=== PATIENT | female | born 1950 | race Caucasian/White ===

== ENCOUNTER → 2017-10-20 | Outpatient (CLI) | payer MEDICARE ==
[2017-10-20 10:08] LABS: ALT 24 U/L (9-52); AST 21 U/L (14-36); Alkaline Phosphatase 60 U/L (38-126); Anion Gap 7 mmol/L; Blood Urea Nitrogen 19 mg/dL (7-17); Carbon Dioxide 27 mmol/L (22-30); Chloride 104 mmol/L (98-107); Cholesterol 219 mg/dL (<200); Glucose 96 mg/dL (74-99); HDL Cholesterol 65 mg/dL (40-60); Non-African American GFR(MDRD) 51 (>60 ml/min/1.73 sqM); Potassium 4.1 mmol/L (3.5-5.1); Sodium 138 mmol/L (137-145); Total Bilirubin 0.4 mg/dL (0.2-1.3); Total Protein 6.5 g/dL (6.3-8.2)
== END | disposition home or self-care (01) ==
LOC: LABWHC1 09:19
PROVIDERS: ATTEND Internal Medicine Interventional Cardiology
DX: E78.2 Mixed hyperlipidemia (principal)
CPT/HCPCS: 36415; 80053; 80061

== ENCOUNTER → 2017-10-28 | Day surgery (SDC) | payer MEDICARE ==
[2017-10-24 11:02] VITALS: BMI 37.2
[~2017-10-28] MED LIST: ALPRAZolam 0.25 MG TAB PO PRN; ALPRAZolam 0.5 MG TAB PO PRN; ASPIRIN 325 MG TAB PO SCH; ASPIRIN 325 MG TAB PO STA; ATORVASTATIN 40 MG TAB PO SCH; ATORVASTATIN 80 MG TAB PO STA; HEPARIN SODIUM 1,000 UN/ML (10ML VL) IV ONE; HEPARIN SODIUM 1,000 UN/ML (10ML VL) ONE; IOHEXOL 350 MG/ML 125ML BOTTLE INJ ONE; ISOSORBIDE MONONITRATE ER 30 MG TAB.ER.24H PO SCH; LIDOCAINE 2% INJ 20 MG/ML (20 ML MDV) ONE; LIDOCAINE 2% INJ 20 MG/ML SQ ONE; LISINOPRIL-HCTZ 20-12.5 MG 1 EACH TAB PO SCH; LORazepam 1 MG TAB PO PRN; MULTIVITAMINS, THERA 1 EACH TAB PO SCH; NITROGLYCERIN SL TABS 0.4 MG TAB SUBLINGUAL PRN; NON-FORMULARY DRUG (Cholecalciferol (Vitamin D3) [Vitamin D3] 2,000 UNIT) PO SCH; NON-FORMULARY DRUG (Cyanocobalamin (Vitamin B-12) [Vitamin B-12] 1,000 MCG) PO SCH; NON-FORMULARY DRUG (Fish Oil/Dha/Epa [Fish Oil 1,200 Mg Fish Oil] 1 EACH) PO SCH; NON-FORMULARY DRUG (Levothyroxine Sodium [Synthroid] 175 MCG) PO SCH; RX INFO: IV CONTRAST WAS GIVEN 1 EACH MISC MISCELLANE PRN; SODIUM CHLORIDE 0.9% 1,000 ML IV SCH; SODIUM CHLORIDE 0.9% 1,000 ML in EMPTY BAG 1 BAG IV ONE; VERAPAMIL 2.5 MG/ML 2 ML AMP ONE; VERAPAMIL SYRINGE (5 MG/10 ML) INTRAARTER ONE; fentaNYL (PF) 50 MCG/ML 2 ML AMP IV ONE; fentaNYL (PF) 50 MCG/ML 2 ML AMP ONE
[2017-10-28 06:36] VITALS: RESP 18; TEMP 97.9
[2017-10-28 06:42] LABS: Basophils # (A) 0.1 k/uL (0-0.2); Basophils % (A) 1 %; CH 23.5; CHCM 31.2; Eosinophils # (A) 0.3 k/uL (0-0.7); Eosinophils % (A) 5 %; HCT 33.1 % (34.0-46.0); HDW 2.85; Hypochromasia Moderate; Luc # (Auto) 0.16; Luc % (Auto) 2; Lymphocytes # (A) 1.9 k/uL (1.0-4.8); Lymphocytes % (A) 28 %; MCH 22.8 pg (25.0-35.0); MCHC 30.3 g/dL (31.0-37.0); MCV 75.4 fL (80.0-100.0); Mean Platelet Volume 7.9; Microcytosis Slight; Monocytes # (A) 0.5 k/uL (0-1.0); Monocytes % (A) 8 %; Neutrophils # (A) 3.8 k/uL (1.3-7.7); Neutrophils % (A) 56 %; RBC 4.39 m/uL (3.80-5.40); WBC 6.9 k/uL (3.8-10.6); WBC (Perox) 6.46
[2017-10-28 06:47] LABS: Calcium 9.5 mg/dL (8.4-10.2); Potassium 4.1 mmol/L (3.5-5.1)
--- NOTE | 2017-10-28 09:05 | CC ---
CARDIAC CATHETERIZATION REPORT Ms. Pathak is a 67-year-old female, known history of hypertension, hyperlipidemia, who has been complaining of chest discomfort associated with mild dyspnea. She underwent a myocardial perfusion imaging that revealed partially reversible anterolateral wall defect. In view of that and because of the persistent symptoms, recommendation made regarding cardiac catheterization the procedures risks and complication were discussed with the patient, who is in full understanding and agreement. 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 Using Xylocaine anesthesia and Seldinger technique, a 6-[place] sheath was introduced in the right radial artery. Selective right coronary angiography performed using 5-[place] Citizen 3- 1/2 bend right and left Rosanne catheter multiple views of the coronary artery including hemiaxial views were obtained. Following that 5-[place] Citizen tight pigtail catheter was introduced into the left ventricle and a 30 degree RODRIGUEZ view of the left ventricle was obtained. Following that, catheter and sheath were removed. Hemostasis was obtained with deployment of a TR band. There was no immediate complication. Patient returned to room in stable condition. Of note, the patient received 5000 units of intravenous heparin as well as intra-arterial verapamil. FINDINGS: 1. Left main this is a large-sized vessel bifurcating left circumflex left anterior descending artery. Left main coronary artery is without any obstructive coronary artery disease. 2. Left anterior descending artery: This is a large-sized vessel reaching to the apex giving rise to a large diagonal branch. The left anterior descending artery as well as branches have no evidence of obstructive disease. 3. Left circumflex: This is a codominant vessel giving rise to a very large proximal obtuse marginal branch distally bifurcating PDA and posterolateral segment and branches. The left circumflex as well as branches have no evidence of obstructive coronary disease. 4. Right coronary artery: This is a codominant vessel, moderate in caliber. That has no evidence of high-grade stenosis. 5. Left ventriculogram: Left ventriculogram is 30-degree RODRIGUEZ view and revealed normal left ventricular size and systolic function. 6. HEMODYNAMICS: There was no gradient across the aortic valve. The left ventricular end-diastolic pressure was 10 mmHg. CONCLUSION: 1. Normal coronary arteries. 2. Normal left ventricular size and systolic function. RECOMMENDATION: In view of finding anatomy, I recommend continue medical therapy with aggressive medications been initiated. Those findings and recommendation were discussed with the patient and agreement. DURATION OF THE PROCEDURE: 19 minutes. MMODL / IJN: [id number] /
--- NOTE | 2017-10-28 09:11 | LTR ---
October 28, [address] Palacios: I had the pleasure of performing cardiac catheterization on Ms. Pathak at [facility] on October 28 and full copy of the procedure note will be forwarded to you. In brief, she was found to have no evidence of obstructive coronary artery disease. Based on those findings, I recommend continue medical therapy with aggressive risk modification being initiated. Thank you again for allowing me to participate in this patient's care. Please feel free to call for any questions. Sincerely, AFIA / DAVIDN: [id number] /
[2017-10-28 13:15] VITALS: BP 110/62; PULSE 57
== END | disposition home or self-care (01) ==
LOC: CATHCVL 06:10
PROVIDERS: ATTEND Internal Medicine Interventional Cardiology
DX: R07.89 Other chest pain (principal); R94.8 Abnormal results of function studies of other organs and systems; I10 Essential (primary) hypertension; E78.2 Mixed hyperlipidemia; Z82.49 Family history of ischemic heart disease and other diseases of the circulatory system; Z79.82 Long term (current) use of aspirin; Z79.899 Other long term (current) drug therapy
CPT/HCPCS: 93458; 80048; 85025; C1894; C1769; J2001; J3010; J1644; Q9967

== ENCOUNTER → 2017-12-24 | Outpatient (CLI) | payer MEDICARE ==
[2017-12-24 11:02] LABS: Anisocytosis Slight; Basophils % (A) 1 %; Eosinophils # (A) 0.1 k/uL (0-0.7); Eosinophils % (A) 2 %; HCT 34.6 % (34.0-46.0); HGB 10.2 gm/dL (11.4-16.0); Hypochromasia Moderate; Lymphocytes # (A) 0.7 k/uL (1.0-4.8); Lymphocytes % (A) 14 %; MCH 22.8 pg (25.0-35.0); MCHC 29.6 g/dL (31.0-37.0); MCV 77.2 fL (80.0-100.0); Mean Platelet Volume 8.8; Microcytosis Slight; Monocytes # (A) 0.4 k/uL (0-1.0); Monocytes % (A) 8 %; Neutrophils # (A) 3.6 k/uL (1.3-7.7); Neutrophils % (A) 74 %; Platelet Count 222 k/uL (150-450); RBC 4.49 m/uL (3.80-5.40); RDW 16.6 % (11.5-15.5); WBC 4.8 k/uL (3.8-10.6)
[2017-12-24 11:14] LABS: T4, Free (Free Thyroxine) 2.17 ng/dL (0.78-2.19)
[2017-12-24 11:24] LABS: Calcium 9.2 mg/dL (8.4-10.2); Potassium 4.2 mmol/L (3.5-5.1); Total Bilirubin 0.6 mg/dL (0.2-1.3); Total Protein 6.4 g/dL (6.3-8.2)
[2017-12-24 17:52] LABS: Thyroid Peroxidase Antibodies <28.0 U/mL (0.0-60.0)
== END | disposition home or self-care (01) ==
LOC: LABWHC1 09:40
PROVIDERS: ATTEND Internal Medicine Interventional Cardiology
DX: E78.2 Mixed hyperlipidemia (principal); D64.9 Anemia, unspecified
CPT/HCPCS: 36415; 80053; 80061; 84439; 84443; 84480; 85025; 86376; 86800

== ENCOUNTER 2018-02-06 06:55 | Day surgery (SDC) | payer MEDICARE ==
[2018-02-04 15:30] VITALS: BMI 36.8
[~2018-02-06 06:55] MED LIST changes: -ALPRAZolam 0.25 MG TAB PO PRN; -ALPRAZolam 0.5 MG TAB PO PRN; -ASPIRIN 325 MG TAB PO SCH; -ASPIRIN 325 MG TAB PO STA; -ATORVASTATIN 40 MG TAB PO SCH; -ATORVASTATIN 80 MG TAB PO STA; -HEPARIN SODIUM 1,000 UN/ML (10ML VL) IV ONE; -HEPARIN SODIUM 1,000 UN/ML (10ML VL) ONE; -IOHEXOL 350 MG/ML 125ML BOTTLE INJ ONE; -ISOSORBIDE MONONITRATE ER 30 MG TAB.ER.24H PO SCH; +LACTATED RINGERS 1,000 ML IV SCH; +LIDOCAINE 1% 20 ML VIAL (10MG/ML) FOR IV START INTRADERMA PRN; -LIDOCAINE 2% INJ 20 MG/ML (20 ML MDV) ONE; -LIDOCAINE 2% INJ 20 MG/ML SQ ONE; -LISINOPRIL-HCTZ 20-12.5 MG 1 EACH TAB PO SCH; -LORazepam 1 MG TAB PO PRN; -MULTIVITAMINS, THERA 1 EACH TAB PO SCH; -NITROGLYCERIN SL TABS 0.4 MG TAB SUBLINGUAL PRN; -NON-FORMULARY DRUG (Cholecalciferol (Vitamin D3) [Vitamin D3] 2,000 UNIT) PO SCH; -NON-FORMULARY DRUG (Cyanocobalamin (Vitamin B-12) [Vitamin B-12] 1,000 MCG) PO SCH; -NON-FORMULARY DRUG (Fish Oil/Dha/Epa [Fish Oil 1,200 Mg Fish Oil] 1 EACH) PO SCH; -NON-FORMULARY DRUG (Levothyroxine Sodium [Synthroid] 175 MCG) PO SCH; -RX INFO: IV CONTRAST WAS GIVEN 1 EACH MISC MISCELLANE PRN; -SODIUM CHLORIDE 0.9% 1,000 ML IV SCH; -SODIUM CHLORIDE 0.9% 1,000 ML in EMPTY BAG 1 BAG IV ONE; -VERAPAMIL 2.5 MG/ML 2 ML AMP ONE; -VERAPAMIL SYRINGE (5 MG/10 ML) INTRAARTER ONE; -fentaNYL (PF) 50 MCG/ML 2 ML AMP IV ONE; -fentaNYL (PF) 50 MCG/ML 2 ML AMP ONE
[2018-02-06 07:46] VITALS: RESP 16; TEMP 98.2
[2018-02-06] MEDS ORDERED: PROPOFOL 10 MG/ML 20 ML VIAL IV ONE (09:11)
--- NOTE | 2018-02-06 09:35 | P.PCN ---
Date of Procedure: 02/06/18 Procedure(s) Performed: BRIEF HISTORY: Patient is a 68-year-old pleasant white female, scheduled for an elective colonoscopy as a part of screening for colon cancer. She was noted to have a positive cologard test recently. PROCEDURE PERFORMED: Colonoscopy. PREOPERATIVE DIAGNOSIS: Screening for colon cancer IV sedation per Anesthesia. PROCEDURE: After informed consent was obtained, the patient, was brought into the endoscopy unit. IV sedation was administered by Anesthesia under continuous monitoring. Digital rectal examination was normal. Initially the Olympus CF- 160 flexible video colonoscope was then inserted in the rectum, gradually advanced into the cecum without any difficulty. Careful examination was performed as the scope was gradually being withdrawn. Ileocecal valve and the appendiceal orifice were visualized and appeared normal. Prep was excellent. Mucosa of the cecum, ascending colon, transverse colon, descending colon, sigmoid colon, and rectum appeared normal. Retroflexion was performed in the rectum and no lesions were seen. scattered sigmoid diverticulosis seen. The patient tolerated the procedure well. IMPRESSION: Normal-appearing colon from rectum to cecum with no evidence of colorectal neoplasia . Scattered sigmoid diverticulosis RECOMMENDATIONS: Findings of this examination were discussed with the patient as well as a family. She was advised to have a repeat screening colonoscopy in 10 years
[2018-02-06 09:54] VITALS: BP 176/79; PULSE 54
== END 2018-02-06 10:32 | disposition home or self-care (01) ==
LOC: ORWHC2ENDO 06:55
PROVIDERS: ATTEND Internal Medicine Gastroenterology
DX: Z12.11 Encounter for screening for malignant neoplasm of colon (principal); K57.30 Diverticulosis of large intestine without perforation or abscess without bleeding; I10 Essential (primary) hypertension; E78.5 Hyperlipidemia, unspecified; E07.9 Disorder of thyroid, unspecified; K21.9 Gastro-esophageal reflux disease without esophagitis; R00.1 Bradycardia, unspecified; Z79.82 Long term (current) use of aspirin; Z79.899 Other long term (current) drug therapy; Z88.6 Allergy status to analgesic agent; Z91.040 Latex allergy status; Z91.018 Allergy to other foods
CPT/HCPCS: J2704; G0121

== ENCOUNTER 2018-03-02 16:33 | Emergency (ER) | payer MEDICARE ==
[2018-03-02 17:02] VITALS: BP 130/74; PULSE 65; RESP 18; TEMP 97.3
--- NOTE | 2018-03-02 17:23 | ED ---
General Adult HPI - General Chief complaint: Extremity Injury, Lower Stated complaint: Foot/ankle injury Time Seen by Provider: 03/02/18 17:07 Source: patient, RN notes reviewed Mode of arrival: wheelchair Limitations: no limitations - History of Present Illness Initial comments: Patient 68-year-old female presenting to the emergency room today with chief complaint of injury to left ankle. She does admit that she was coming down off of her porch when she stepped out onto the grass when the left ankle. She states she believes she stepped in a small hole. Patient does admit to pain locally to the lateral aspect of the left ankle and foot. Patient admits that she did fall down onto her elbows but states that they are fine. Denies any head injury or loss conscious. Denies any other complaints. Patient denies any blood thinners. Patient denies any recent fever, chills, shortness of breath , chest pain, back pain, abdominal pain, nausea or vomiting, numbness or tingling, headaches or visual changes, or any other complaints. - Related Data Home Medications Medication Instructions Recorded Confirmed Levothyroxine Sodium [Synthroid] 137 mcg PO DAILY 09/25/15 02/06/18 Lisinopril-Hctz 20-12.5 mg 0.5 tab PO DAILY 09/25/15 02/06/18 [Zestoretic 20-12.5] Aspirin 325 mg PO Q2D 10/24/17 02/06/18 Atorvastatin [Lipitor] 40 mg PO DAILY 10/24/17 02/06/18 Cholecalciferol (Vitamin D3) 2,000 unit PO DAILY 10/24/17 02/06/18 [Vitamin D3] Cyanocobalamin (Vitamin B-12) 1,000 mcg PO DAILY 10/24/17 02/06/18 [Vitamin B-12] Fish Oil/Dha/Epa [Fish Oil 1,200 1 each PO DAILY 10/24/17 02/06/18 mg Fish Oil] LORazepam [Ativan] 1 mg PO BID PRN 10/24/17 02/06/18 Multivitamins, Thera [Multivitamin 1 tab PO DAILY 10/24/17 02/06/18 (formulary)] Vitamin E 100 unit PO DAILY 02/04/18 02/06/18 Allergies Allergy/AdvReac Type Severity Reaction Status Date / Time aspartame Allergy Anaphylaxis Verified 03/02/18 17:02 banana Allergy Anaphylaxis Verified 03/02/18 17:02 water chestnut Allergy Swelling Verified 03/02/18 17:03 adhesive tape AdvReac skin Verified 03/02/18 17:02 blisters latex AdvReac Rash/Hives Verified 03/02/18 17:02 Review of Systems ROS Statement: Those systems with pertinent positive or pertinent negative responses have been documented in the HPI. ROS Other: All systems not noted in ROS Statement are negative. Past Medical History Past Medical History: GERD/Reflux, Hyperlipidemia, Hypertension, Thyroid Disorder Additional Past Medical History / Comment(s): bradycardia History of Any Multi-Drug Resistant Organisms: None Reported Past Surgical History: Appendectomy, Bariatric Surgery, Hysterectomy Additional Past Surgical History / Comment(s): rouxen y gastric bypass 2000 Past Anesthesia/Blood Transfusion Reactions: No Reported Reaction Past Psychological History: Anxiety, Depression Smoking Status: Never smoker Past Alcohol Use History: None Reported Past Drug Use History: None Reported - Past Family History Mother Family Medical History: No Reported History General Exam - General Exam Comments Initial Comments: General: The patient is awake and alert, in no distress, and does not appear acutely ill. Cardiovascular: There is a regular rate and rhythm. No murmur, rub or gallop is appreciated. Respiratory: Lungs are clear to auscultation, respirations are non-labored, breath sounds are equal. No wheezes, stridor, rales, or rhonchi. Musculoskeletal: Patient does have some moderate swelling over the lateral aspect of left ankle and down to the fifth metatarsals. Patient shows limited range of motion with plantar and dorsiflexion of the left ankle due to pain. Minimal tenderness over the medial malleolus. Mild tenderness over the proximal fourth and fifth metatarsals. Mildly tender over the lateral malleolus with increased tenderness in the ATFL. No specific tenderness over the fibular head or to the left knee. Neurological: A&O x 3. CN II-XII intact, There are no obvious motor or sensory deficits. Coordination appears grossly intact. Speech is normal. Skin: Skin is warm and dry and no rashes or lesions are noted. Psychiatric: Normal mood and affect. Limitations: no limitations Course Vital Signs 03/02/18 16:58 Temperature 97.3 F L Pulse Rate 65 Respiratory 18 Rate Blood Pressure 130/74 O2 Sat by Pulse 99 Oximetry Medical Decision Making - Medical Decision Making X-rays reviewed and show a fracture of the proximal fifth metatarsal. Patient has been splinted in a short leg posterior OCL. Neurovascular rechecked and intact. Patient does have an appointment with orthopedic doctor tomorrow morning at 8 AM. Patient advised nonweightbearing she does have crutches at home. Advised to continue to ice elevate tonight. Disposition Clinical Impression: Foot fracture, Ankle sprain Disposition: HOME SELF-CARE Condition: Good Instructions: Foot Fracture in Adults (ED) Additional Instructions: Please leave splint in place until follow-up with orthopedics tomorrow. Please continue to ice elevate and stay nonweightbearing. Please return to emergency room if the symptoms increase or worsen or for any other concerns. Is patient prescribed a controlled substance at d/c from ED?: No Referrals: Nathaniel Palacios DO [Primary Care Provider] - 1-2 days Time of Disposition: 17:55
--- NOTE | 2018-03-02 17:32 | XR ---
EXAMINATION TYPE: XR tibia fibula LT, XR foot complete LT, XR ankle complete LT DATE OF EXAM: 03/02/2018 CLINICAL HISTORY: Fall injury 3 days ago with persistent pain and swelling TECHNIQUE: Two views of the left leg are obtained. 3 views of left ankle and foot are acquired. COMPARISON: None. FINDINGS: Osseous structures are noted demineralized. There is no acute fracture or dislocation seen in the left tibia or fibula. There is mild to moderate tricompartment joint space loss and spurring at level of left knee. Mild to moderate diffuse subcutaneous edema is present. There is moderate focal soft tissue swelling over the lateral malleolus. No acute fracture or disloca tion is seen. Ankle mortise symmetry is preserved. Images of left foot show hallux valgus positioning first metatarsophalangeal joint. There is acute mi nimally displaced transverse fracture through base of fifth metatarsal. Mild subcutaneous edema is pr esent. IMPRESSION: There is acute minimally displaced transverse fracture base of fifth metatarsal. (Henry type fracture). (Initial encounter close type post traumatic fracture)
== END 2018-03-02 18:15 | disposition home or self-care (01) ==
LOC: EC 16:33
DX: S92.352A Displaced fracture of fifth metatarsal bone, left foot, initial encounter for closed fracture (principal); S93.402A Sprain of unspecified ligament of left ankle, initial encounter; E78.5 Hyperlipidemia, unspecified; I10 Essential (primary) hypertension; E07.9 Disorder of thyroid, unspecified; Z79.899 Other long term (current) drug therapy; Z79.82 Long term (current) use of aspirin; Z91.018 Allergy to other foods; Z91.040 Latex allergy status; Z91.048 Other nonmedicinal substance allergy status; W18.30XA Fall on same level, unspecified, initial encounter
CPT/HCPCS: 29515; 99283

== ENCOUNTER 2019-08-07 17:26 | Emergency (ER) | payer MEDICARE ==
[2019-08-07 18:06] LABS: Basophils # (A) 0.1 k/uL (0-0.2); Basophils % (A) 1 %; Eosinophils # (A) 0.2 k/uL (0-0.7); Eosinophils % (A) 2 %; HGB 10.7 gm/dL (11.4-16.0); Lymphocytes # (A) 1.7 k/uL (1.0-4.8); Lymphocytes % (A) 20 %; MCH 27.9 pg (25.0-35.0); MCHC 31.5 g/dL (31.0-37.0); MCV 88.7 fL (80.0-100.0); Mean Platelet Volume 8.1; Monocytes # (A) 0.5 k/uL (0-1.0); Monocytes % (A) 6 %; Neutrophils # (A) 5.9 k/uL (1.3-7.7); Neutrophils % (A) 68 %; Platelet Count 382 k/uL (150-450); RBC 3.83 m/uL (3.80-5.40); RDW 13.7 % (11.5-15.5); WBC 8.7 k/uL (3.8-10.6)
[2019-08-07 18:15] LABS: INR 0.9 (<1.2); Partial Thromboplastin Time 23.9 sec (22.0-30.0); Prothrombin Time 10.2 sec (9.0-12.0)
[2019-08-07 18:21] LABS: Albumin 3.3 g/dL (3.5-5.0); Calcium 8.7 mg/dL (8.4-10.2); Potassium 4.4 mmol/L (3.5-5.1); Total Bilirubin 0.6 mg/dL (0.2-1.3)
--- NOTE | 2019-08-07 18:23 | XR ---
EXAMINATION TYPE: XR chest 2V DATE OF EXAM: 08/07/2019 COMPARISON: NONE HISTORY: Chest pain TECHNIQUE: Frontal and lateral views of the chest are obtained. FINDINGS: Heart and mediastinum are normal. Lungs are clear of infiltrate. There is no pleural effus ion. Bony thorax is intact. IMPRESSION: Normal chest.
--- NOTE | 2019-08-07 19:03 | ED ---
Chest Pain HPI - General Chief Complaint: Chest Pain Stated Complaint: chest pain Time Seen by Provider: 08/07/19 17:45 Source: EMS Mode of arrival: EMS - History of Present Illness Initial Comments: Patient is a 69-year-old female with past medical history of Rui-en-Y bypass who presents to the emergency room with reported left-sided chest pain. She reports that it's been going on for the past 2 days. It started after she was helping to lift assist her . It waxes and wanes in nature. Does appear to be exacerbated by food and water intake. She describes it as a left-sided substernal pain with radiation straight through to her back. It feels as if someone is stabbing her in her left scapula. She denies any associated nausea, vomiting or diaphoresis. Denies cough or hemoptysis. No history of coronary disease. States that she has had a cath in 1996, which demonstrated no occlusions and she was diagnosed with angina. She denies any shortness of breath. No history of DVTs or PEs. This is not a pleuritic chest pain. She does report a heartburn sensation. Denies any abdominal pain. Denies any changes in her urination to include dysuria, hematuria or difficulty voiding. Denies any changes in her bowel movements including diarrhea, constipation, melanotic stools or hematochezia. No fevers or chills. There are no other alleviating, precipitating or modifying factors - Related Data Home Medications Medication Instructions Recorded Confirmed Atorvastatin [Lipitor] 20 mg PO DAILY 10/24/17 08/07/19 LORazepam [Ativan] 1 mg PO DAILY 08/07/19 08/07/19 Levothyroxine Sodium [Synthroid] 125 mcg PO DAILY 08/07/19 08/07/19 Allergies Allergy/AdvReac Type Severity Reaction Status Date / Time aspartame Allergy Anaphylaxis Verified 08/07/19 18:03 banana Allergy Anaphylaxis Verified 08/07/19 18:03 water chestnut Allergy Swelling Verified 08/07/19 18:03 adhesive tape AdvReac skin Verified 08/07/19 18:03 blisters latex AdvReac Rash/Hives Verified 08/07/19 18:03 Review of Systems ROS Statement: Those systems with pertinent positive or pertinent negative responses have been documented in the HPI. ROS Other: All systems not noted in ROS Statement are negative. EKG Findings - EKG Comments: EKG Findings:: EKG demonstrates a sinus rhythm with a ventricular rate of 69. ME interval 134. QRS is 96. QTC 452. There are no acute ST segment elevations or depressions concerning for ischemic changes. Past Medical History Past Medical History: GERD/Reflux, Hyperlipidemia, Hypertension, Thyroid Disorder Additional Past Medical History / Comment(s): bradycardia History of Any Multi-Drug Resistant Organisms: None Reported Past Surgical History: Appendectomy, Bariatric Surgery, Hysterectomy Additional Past Surgical History / Comment(s): rouxen y gastric bypass 2000 Past Anesthesia/Blood Transfusion Reactions: No Reported Reaction Past Psychological History: Anxiety, Depression Smoking Status: Never smoker Past Alcohol Use History: None Reported Past Drug Use History: None Reported - Past Family History Mother Family Medical History: No Reported History General Exam General appearance: alert, in no apparent distress Head exam: Present: atraumatic, normocephalic, normal inspection Eye exam: Present: normal appearance, PERRL, EOMI. Absent: scleral icterus, conjunctival injection, periorbital swelling ENT exam: Present: normal exam, mucous membranes moist Neck exam: Present: normal inspection. Absent: tenderness, meningismus, lymphadenopathy Respiratory exam: Present: normal lung sounds bilaterally. Absent: respiratory distress, wheezes, rales, rhonchi, stridor Cardiovascular Exam: Present: regular rate, normal rhythm, normal heart sounds, other (There is tenderness to palpation of the left chest wall). Absent: systolic murmur, diastolic murmur, rubs, gallop, clicks GI/Abdominal exam: Present: soft, tenderness (RUQ), normal bowel sounds. Absent: distended, guarding, rebound, rigid Extremities exam: Present: normal inspection, full ROM, normal capillary refill. Absent: tenderness, pedal edema, joint swelling, calf tenderness Back exam: Present: normal inspection Neurological exam: Present: alert, oriented X3, CN II-XII intact Psychiatric exam: Present: normal affect, normal mood Skin exam: Present: warm, dry, intact, normal color. 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 A thorough history and physical exam was performed. Peripheral IV had been established by EMS. She received 324 mg of chewable aspirin. She also received 3 nitro which she stated alleviated her symptoms. The patient reports being pain-free at this time. Laboratory says were conducted. CMP is remarkable for an AST of 267, ALT 245, alk phos 423. CT of the abdomen and pelvis demonstrates numerous gallstones with gallbladder wall thickening suggestive of acute and chronically studies. Gallbladder is dilated and measures 5.5 cm diameter. Possible fistula between the gallbladder and the duodenum. Fat-containing ventral hernia in the upper abdomen and also lower abdomen. Upper ultrasound demonstrates gallstones an echogenic bile and some called bladder wall thickening suggestive acute and chronically cystitis. No dilated ducts. A 12-lead EKG was also performed which noted normal sinus rhythm. I did reevaluate the patient and informed her of her laboratory studies. I called and discussed the case with Dr. Nettles who recommended that the patient be transferred to a tertiary center. I did call and discuss the case with Dr. Silva at [facility]. He did accept the admission. Cultures were obtained and Zosyn was started. The patient was then transported in stable condition Disposition Clinical Impression: Chest pain, Acute cholecystitis, Fistula of gallbladder, History of Rui-en-Y gastric bypass Disposition: OTHER INSTITUTION NOT DEFINED Condition: Serious Is patient prescribed a controlled substance at d/c from ED?: No Referrals: Nathaniel Palacios DO [Primary Care Provider] - 1-2 days - Out of Hospital Transfer - Req. Specs Out of Hospital Transfer - Requested Specifics: Other Emergency Center ([facility])
[2019-08-07 19:06] VITALS: RESP 18
--- NOTE | 2019-08-07 20:37 | US ---
EXAMINATION TYPE: US gallbladder DATE OF EXAM: 08/07/2019 COMPARISON: NONE CLINICAL HISTORY: pain. Epigastric pain, elevated liver enzymes, history of gastric bypass surgery EXAM MEASUREMENTS: Liver Length: 13.3 cm Gallbladder Wall: 0.5 cm CBD: 0.5 cm Right Kidney: 9.1 x 4.9 x 4.3 cm Technical limitations due to large amount of overlying bowel content Pancreas: limited evaluation, visualized portions appear slightly heterogenous Liver: only seen intercostally Gallbladder: stones, sludge, thickened GB wall Evidence for sonographic Alvarado's sign: no CBD: appears wnl as visualized Right Kidney: no evidence of hydronephrosis *Anechoic area mid abdomen = 14.5cm ?etiology no dilated ducts. *Anechoic area mid abdomen = 14.5cm ?etiology no dilated ducts. IMPRESSION: Gallstones and echogenic bile and some gallbladder wall thickening suggestive of acute an d chronic cholecystitis. No dilated ducts. Large cystic midline abdominal fluid collection. This could be the stomach.
--- NOTE | 2019-08-07 21:03 | CT ---
EXAMINATION TYPE: CT abdomen pelvis w con DATE OF EXAM: 08/07/2019 COMPARISON: HISTORY: chest pain (mid sternal) CT DLP: 1311.6 mGycm Automated exposure control for dose reduction was used. TECHNIQUE: Helical acquisition of images was performed from the lung bases through the pelvis. CONTRAST: Performed without Oral Contrast and with IV Contrast, patient injected with 100 mL of Isovue 300. FINDINGS: Lung bases are clear. There is no pleural effusion. There are surgical clips at the gastroesophageal junction. There is apparent previous bariatric surgery. There is large gastric pouch with thin wall. There are numerous gallstones. Gallbladder wall shows irregular thickening. On axial image 26 there c ould be fistulous communication between the gallbladder and the descending duodenum. The bile ducts a re not dilated. There is no discrete liver mass. There are numerous calcified splenic granulomata. Th ere is no evidence of pancreatic mass. There is no adrenal mass. Kidneys show satisfactory contrast opacification. There is no hydronephrosi s. There is 3 cm ventral hernia that contains fat. There is atrophy of anterior abdominal wall muscle s on the right side. There are sigmoid diverticula. There is no sign of diverticulitis. Bladder diste nds smoothly. There is no retroperitoneal adenopathy. Appendix is not definitely seen. There is no si gn of thickened appendix. There is a degenerative first-degree L3-4 spondylolisthesis. There is no hari mbar compression fracture. Bony pelvis appears intact. There is no evidence of a fracture. IMPRESSION: PREVIOUS BARIATRIC SURGERY WITH GASTROJEJUNOSTOMY. DILATED FLUID-FILLED GASTRIC POUCH RAISES THE POSS IBILITY OF OUTLET OBSTRUCTION. NUMEROUS GALLSTONES WITH GALLBLADDER WALL THICKENING SUGGESTIVE OF ACUTE AND CHRONIC CHOLECYSTITIS. T HE GALLBLADDER IS DILATED AND MEASURES 5.5 CM IN DIAMETER. POSSIBLE FISTULA BETWEEN THE GALLBLADDER A ND THE DUODENUM. FAT-CONTAINING VENTRAL HERNIA IN THE UPPER ABDOMEN AND ALSO LOWER ABDOMEN.
[2019-08-07] MEDS ORDERED: PIPERACILLIN-TAZOBACTAM 3.375 GM in SODIUM CHLORIDE 0.9% 100 ML IVPB SCH (22:00)
[2019-08-07 23:04] VITALS: BP 132/79; PULSE 74; TEMP 98.3
== END 2019-08-07 23:06 | disposition other institution (70) ==
LOC: EC 17:26
DX: K80.00 Calculus of gallbladder with acute cholecystitis without obstruction (principal); R07.89 Other chest pain; K43.9 Ventral hernia without obstruction or gangrene; E78.5 Hyperlipidemia, unspecified; E07.9 Disorder of thyroid, unspecified; I10 Essential (primary) hypertension; K21.9 Gastro-esophageal reflux disease without esophagitis; F41.9 Anxiety disorder, unspecified; Z79.899 Other long term (current) drug therapy; Z91.02 Food additives allergy status; Z91.018 Allergy to other foods; Z91.040 Latex allergy status; Z91.048 Other nonmedicinal substance allergy status; Z90.89 Acquired absence of other organs; Z98.84 Bariatric surgery status
CPT/HCPCS: 36415; 93005; 80053; 83690; 83735; 84484; 85025; 85610; 85730; 87040; 71046; 76705; 74177; 99285; 96365; J2543; Q9967

== ENCOUNTER → 2020-01-03 | Outpatient (CLI) | payer MEDICARE ==
[2020-01-03 17:11] LABS: African American GFR (CKD) 65.6 (60.0-200.0); Non-African American GFR(CKD) 56.6 (60.0-200.0)
== END | disposition home or self-care (01) ==
LOC: LABWHC1 11:13
PROVIDERS: ATTEND Surgery
DX: R94.4 Abnormal results of kidney function studies (principal)
CPT/HCPCS: 36415; 82565; 84520

== ENCOUNTER → 2020-04-18 | Outpatient (CLI) | payer MEDICARE ==
[2020-04-18 19:45] LABS: Albumin 3.8 g/dL (3.80-4.90); Bilirubin, Conjugated 0.6 mg/dL (0.20-0.40); Bilirubin,Unconjugated 0.2 mg/dL; Globulin 1.9 g/dL (1.6-3.3); Total Bilirubin 0.8 mg/dL (0.3-1.2); Total Protein 5.7 g/dL (6.2-8.2)
== END | disposition home or self-care (01) ==
LOC: LABWHC1 11:59
PROVIDERS: ATTEND Surgery
DX: K80.50 Calculus of bile duct without cholangitis or cholecystitis without obstruction (principal)
CPT/HCPCS: 36415; 80076

== ENCOUNTER 2021-06-17 20:48 | Emergency (ER) | payer MEDICARE ==
[2021-06-17 21:02] VITALS: TEMP 97.7
--- NOTE | 2021-06-17 22:16 | XR ---
EXAMINATION TYPE: XR wrist complete RT DATE OF EXAM: 06/17/2021 COMPARISON: NONE HISTORY: Fall. Pain. TECHNIQUE: 3 views FINDINGS: There is an acute slightly impacted transverse fracture distal radial metaphysis. There is nondisplaced ulnar styloid process fracture. There is no dislocation. There is moderate osteoarthriti s at the first carpometacarpal joint. IMPRESSION: Acute fracture of the distal radius and ulna. 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
[2021-06-17] MEDS ORDERED: IBUPROFEN 600 MG TAB PO STA (22:31)
--- NOTE | 2021-06-17 22:49 | ED ---
Fall HPI - General Chief Complaint: Fall Stated Complaint: Right arm pain Time Seen by Provider: 06/17/21 21:18 Source: patient Mode of arrival: ambulatory - History of Present Illness Initial Comments: patient is a 71-year-old female presenting to the emergency Department with complaints of right wrist pain after she fell about an hour prior to arrival. Patient states she was standing, got her feet twisted in a rug and fell backwards. She states she went to go grab the counter to brace her fall but ended up falling right onto her right wrist. She denies hitting her head, she has no other complaints of pain other than in her right wrist. She is not on blood thinners. she denies any previous injuries or fractures to her right wrist or right arm. She has no further complaints. - Related Data Home Medications Medication Instructions Recorded Confirmed Atorvastatin [Lipitor] 20 mg PO DAILY 10/24/17 08/07/19 LORazepam [Ativan] 1 mg PO DAILY 08/07/19 08/07/19 Levothyroxine Sodium [Synthroid] 125 mcg PO DAILY 08/07/19 08/07/19 Allergies Allergy/AdvReac Type Severity Reaction Status Date / Time aspartame Allergy Anaphylaxis Verified 06/17/21 21:02 banana Allergy Anaphylaxis Verified 06/17/21 21:02 water chestnut Allergy Swelling Verified 06/17/21 21:02 adhesive tape AdvReac skin Verified 06/17/21 21:02 blisters latex AdvReac Rash/Hives Verified 06/17/21 21:02 Review of Systems ROS Statement: Those systems with pertinent positive or pertinent negative responses have been documented in the HPI. ROS Other: All systems not noted in ROS Statement are negative. Past Medical History Past Medical History: GERD/Reflux, Hyperlipidemia, Hypertension, Thyroid Disorder Additional Past Medical History / Comment(s): bradycardia History of Any Multi-Drug Resistant Organisms: None Reported Past Surgical History: Appendectomy, Bariatric Surgery, Cholecystectomy, Hysterectomy Additional Past Surgical History / Comment(s): rouxen y gastric bypass 2000 Past Anesthesia/Blood Transfusion Reactions: No Reported Reaction Past Psychological History: Anxiety, Depression Smoking Status: Never smoker Past Alcohol Use History: None Reported Past Drug Use History: None Reported - Past Family History Mother Family Medical History: No Reported History General Exam - General Exam Comments Initial Comments: GENERAL: Patient is well-developed and well-nourished. Patient is nontoxic and in no acute distress. HEAD: Atraumatic, normocephalic. EYES: Pupils equal round and reactive to light, extraocular movements intact, sclera anicteric, conjunctiva are normal. Eyelids were unremarkable. ENT: Moist mucous membranes. NECK: Normal range of motion, supple without lymphadenopathy or JVD. LUNGS: Unlabored respirations. Breath sounds clear to auscultation bilaterally and equal. No wheezes rales or rhonchi. HEART: Regular rate and rhythm without murmurs, rubs or gallops. ABDOMEN: Soft, nontender, normoactive bowel sounds. No guarding, no rebound. No masses appreciated. : Deferred MUSCULOSKELETAL: patient has pain with palpation along the right wrist, medial and lateral aspect, she has an area of swelling noted along the distal radius and into the thumb area. She does have decreased range of motion secondary to pain. She has no pain of the right elbow or right upper arm. She is neurovascular intact. No clubbing or cyanosis. NEUROLOGICAL: Patient is alert and oriented x 3. Motor and sensory are also intact. Cranial nerves II through XII grossly intact. Symmetrical smile. Normal speech, normal gait. PSYCH: Normal mood, normal affect. SKIN: Warm, Dry, normal turgor, no rashes or lesions noted. Limitations: no limitations Course Vital Signs 06/17/21 06/17/21 20:58 22:57 Temperature 97.7 F Pulse Rate 55 L 60 Respiratory 20 16 Rate Blood Pressure 130/69 128/74 O2 Sat by Pulse 97 97 Oximetry Procedures - Orthopedic Splinting/Casting Injury #1 Side: right Upper Extremity Injury Location: short arm, wrist Upper Extremity Immobilizer: sling/shoulder immobilizer, posterior splint, Abdoul wrap, synthetic pre-padded splint Medical Decision Making - Medical Decision Making patient is a 71-year-old female here with right wrist pain after she fell backwards onto it after tripping on a rug. She denies hitting her head, she has no other injuries from this fall. X-rays of the right wrist show an acute slightly impacted transverse fracture distal radial metaphysis, there is a nondisplaced ulnar styloid process fracture as well. patient initially refused any pain medications, after I explained the x-ray, she did agree to some ibuprofen. Patient was post in a posterior splint and given a sling for c omfort. [facility] as she has been told in the past. She will continue with ibuprofen for any discomfort, ice to the area. She is agreeable as planned care and she is stable for discharge. Case discussed Dr. Rock. Disposition Clinical Impression: Fall, Closed fracture of right distal radius and ulna Disposition: HOME SELF-CARE Condition: Stable Instructions (If sedation given, give patient instructions): Wrist Fracture in Adults (ED) Additional Instructions: Please return to the Emergency Department if symptoms worsen or any other concerns. Keep splint in place until follow-up with orthopedics. Wear sling for support. Alternate between Tylenol and Motrin for any discomfort, apply ice to the area. Follow-up with orthopedics as discussed. Is patient prescribed a controlled substance at d/c from ED?: No Referrals: Nathaniel Palacios DO [Primary Care Provider] - 1-2 days Adam Albarado DO [Doctor of Osteopathic Medicine] - 1-2 days Time of Disposition: 22:49
[2021-06-17 22:58] VITALS: BP 128/74; PULSE 60; RESP 16
== END 2021-06-17 22:58 | disposition home or self-care (01) ==
LOC: EC 20:48
DX: S52.501A Unspecified fracture of the lower end of right radius, initial encounter for closed fracture (principal); S52.614A Nondisplaced fracture of right ulna styloid process, initial encounter for closed fracture; I10 Essential (primary) hypertension; E78.5 Hyperlipidemia, unspecified; K21.9 Gastro-esophageal reflux disease without esophagitis; F32.9 Major depressive disorder, single episode, unspecified; F41.9 Anxiety disorder, unspecified; Z79.890 Hormone replacement therapy; Z79.899 Other long term (current) drug therapy; W01.0XXA Fall on same level from slipping, tripping and stumbling without subsequent striking against object, initial encounter
CPT/HCPCS: 29125; 99284

== ENCOUNTER → 2024-04-23 | Outpatient (CLI) | payer MEDICARE ==
--- NOTE | 2024-04-23 12:42 | XR ---
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 FINDINGS: The osseous structures show normal alignment without evidence of an acute fracture. There are osteoph ytes noted throughout the cervical spine on the anterior and lateral aspects of the vertebral bodies. The intervertebral disk spaces are narrowed at multiple levels. Pedicles are intact. Soft tissues a re within normal limits. The odontoid appears intact. IMPRESSION: 1. No fracture or dislocation. 2. Mild degenerative disc disease changes of the cervical spine.
--- NOTE | 2024-04-23 12:42 | XR ---
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 TECHNIQUE: One radiographic view of the abdomen was obtained. FINDINGS: The bowel gas pattern is nonspecific without dilated loops of small or large bowel. There i s no evidence for organomegaly or pneumoperitoneum. The osseous structures are intact. No abnormal calcifications are present. Fecal material and gas are demonstrated throughout the colon and rectum. Multilevel degeneration changes of the spine. IMPRESSION: Nonspecific bowel gas pattern without radiographic evidence for acute process.
== END | disposition home or self-care (01) ==
LOC: RADXRMAIN 11:37
PROVIDERS: ATTEND Family Medicine
DX: M50.30 Other cervical disc degeneration, unspecified cervical region (principal); K43.2 Incisional hernia without obstruction or gangrene
CPT/HCPCS: 72050; 74018

== ENCOUNTER → 2024-08-12 | Outpatient (CLI) | payer MEDICARE ==
--- NOTE | 2024-08-12 13:43 | US ---
EXAMINATION TYPE: US carotid duplex BILAT DATE OF EXAM: 08/12/2024 COMPARISON: Carotid ultrasound 03/28/2010 CLINICAL INDICATION: Female, 74 years old with history of R55 SYNCOPE; Patient denies any signs or sy mptoms; Hx HTN TECHNIQUE: Grayscale, color Doppler and spectral Doppler evaluation of the bilateral carotid systems and vertebral arteries. Indirect Doppler criteria was utilized. FINDINGS: EXAM MEASUREMENTS: RIGHT: Peak Systolic Velocity (PSV) cm/sec ----- Right CCA: 65 ----- Right ICA: 82 ----- Right ECA: 90 ICA/CCA ratio: 1.3 RIGHT: End Diastole cm/sec ----- Right CCA: 15 ----- Right ICA: 34 ----- Right ECA: 14 LEFT: Peak Systolic Velocity (PSV) cm/sec ----- Left CCA: 48 ----- Left ICA: 80 ----- Left ECA: 98 ICA/CCA ratio: 1.7 LEFT: End Diastole cm/sec ----- Left CCA: 12 ----- Left ICA: 31 ----- Left ECA: 20 VERTEBRALS (direction of flow): Right Vertebral: Antegrade Left Vertebral: Antegrade Rhythm: Normal DIRECTOR PHONE NOTES: No intimal thickening, no plaque, and no elevated velocities seen. IMPRESSION: No ultrasound evidence for hemodynamically significant stenosis of the bilateral visualized carotid a rterial systems. Criteria for Assigning % of Stenosis / Diameter reduction (Estimation based on the indirect measurements of the internal carotid artery velocities (ICA PSV). 1. Normal (no stenosis)=ICA PSV < 125 cm/s: ratio < 2.0: ICA EDV<40 cm/s. 2. Less than 50% stenosis=ICA PSV < 125 cm/s: ratio < 2.0: ICA EDV<40 cm/s. 3. 50 to 69% stenosis=ICA PSV of 125 to 230 cm/s: ration 2.0 ? 4.0: ICA EDV 40-100 cm/s. 4. Greater than 70% stenosis to near occlusion= ICA PSV > 230 cm/s: ratio > 4.0: ICA EDV > 100 cm/s. 5. Near occlusion= ICA PSV velocities may be low or undetectable: variable ratio and ICA EDV. 6. Total occlusion=unable to detect flow. [facility], , 08/12/2024 1:41 PM
== END | disposition home or self-care (01) ==
LOC: RADUSWWP 13:11
PROVIDERS: ATTEND Family Medicine
CPT/HCPCS: 93880

== ENCOUNTER → 2024-08-25 | Outpatient (CLI) | payer MEDICARE ==
--- NOTE | 2024-08-26 08:49 | BD ---
EXAMINATION TYPE: Axial Bone Density DATE OF EXAM: 08/25/2024 CLINICAL HISTORY: 74 years old Female. ICD-10 CODE: M81.0 OSTEOPOROSIS Height: 5 ft 4 in Weight: 179 FRAX RISK QUESTIONS: Alcohol (3 or more units per day): no Family History (Parent hip fracture): no Glucocorticoids (More than 3mos): no (Ex: prednisone, prednisolone, methylprednisolone, dexamethasone, and hydrocortisone). History of Fracture in Adulthood: yes Secondary Osteoporosis: 1. Type 1 Diabetes: no 2. Hyperthyroidism: no 3. Menopause before 45: yes 4. Malnutrition: no 5. Chronic liver disease: no Rheumatoid Arthritis: no Current Tobacco Use: no RISK FACTORS HISTORY OF: Surgery to Spine/Hip(right/left)/Wrist (right/left): none MEDICATIONS: Thyroid Medications: yes Which medication: levothyroxine How Long: approx 30 years Osteoporosis Medications: none EXAM MEASUREMENTS: Bone mineral densitometry was performed using the iKa[employer] System. Bone mineral density as measured about the Lumbar spine is: ----- L1-L4(G/cm2): 1.057 T Score Values are as follows: ----- L1: -2.1 ----- L2: -2.2 ----- L3: -0.1 ----- L4: -0.2 ----- L1-L4: -1.0 Z Score Values are as follows: ----- L1: -0.9 ----- L2: -1.0 ----- L3: 1.1 ----- L4: 1.0 ----- L1-L4: 0.2 Bone mineral density has: decreased -11.8 % since study of: 2013 Bone mineral density about the R hip (g/cm2): 0.624 Bone mineral density about the L hip (g/cm2): 0.702 T Score values are as follows: -----R Neck: -3.0 -----L Neck: -2.4 -----R Total: -2.6 -----L Total: -2.1 Z Score values are as follows: -----R Neck: -1.3 -----L Neck: -0.8 -----R Total: -1.1 -----L Total: -0.7 Bone mineral density has: decreased -12.7 % since study of: 2013 FRAX%s: The graph provided illustrates a 30.7 % chance for a major osteoporotic fx and a 11.5 % chanc e for the hips probability for fx in 10 years time. IMPRESSION: Osteoporosis (T Score less than -2.5). There is increased fracture risk and therapy is usually indicated based on age. Re-Screen 1-2 years. NOTE: T-SCORE=SD OF THE YOUNG ADULT MEAN. [facility], , 08/26/2024 8:46 AM
--- NOTE | 2024-08-26 10:22 | MM ---
Reason for Exam: Screening (asymptomatic). Last mammogram was performed 10 year(s) and 5 month(s) ago. Patient History: Menarche at age 11. First Full-Term at age 22. Left ovary removed at age 34. Right ovary removed at age 34. Hysterectomy at age 34. Postmenopausal. Ovarian cancer, age 34. Risk Values: Paty 5 year model risk: 1.6%. NCI Lifetime model risk: 3.2%. Prior Study Comparison: 12/02/2005 Screening Mammogram, [facility]. 06/02/2008 Screening Mammogram, [facility]. 03/09/2014 Bilateral Screening Mammogram, [facility]. Tissue Density: There are scattered areas of fibroglandular density. Findings: Analyzed By CAD. There is no suspicious group of microcalcifications or new suspicious mass in either breast. Overall Assessment: Negative, BI-RAD 1 Management: Screening Mammogram of both breasts in 1 year. . Patient should continue monthly self-breast exams. A clinical breast exam by your physician is recommended on an annual basis. This exam should not preclude additional follow-up of suspicious palpable abnormalities. Note on Paty scores and lifetime risk: 1. A Paty score greater than 3% is considered moderate risk. If this is the case, consider specialist referral to assess eligibility for a risk reducing agent. 2. If overall lifetime risk for the development of breast cancer is 20% or higher, the patient may qualify for future screening with alternating mammogram and breast MRI. [facility], , 08/26/2024 10:19 AM. Electronically signed and approved by: Leo Hurley M.D. Radiologis
== END | disposition home or self-care (01) ==
LOC: RADMAMWWP 15:25
PROVIDERS: ATTEND Family Medicine
CPT/HCPCS: 77063; 77067; 77080

== ENCOUNTER → 2024-10-04 | Outpatient (CLI) | payer MEDICARE ==
--- NOTE | 2024-10-04 10:56 | XR ---
EXAMINATION TYPE: XR shoulder complete BILAT DATE OF EXAM: 10/04/2024 10:31 AM COMPARISON: None CLINICAL INDICATION: Female, 74 years old with history of M25.511 M25.512 Bilat shoulder pain; [facility], p ain TECHNIQUE: XR shoulder complete BILAT; examined in AP, internally rotated and scapular Y projections. FINDINGS: No evidence of acute osseous pathology, joint dislocation, or soft tissue swelling. The remaining po rtions of the visualized chest are unremarkable. Degeneration changes of the acromion, distal clavic le with osteophyte formation. There is osteophyte formation of the glenoid and humeral head. There is joint space narrowing of glenohumeral joint. IMPRESSION: 1. No acute osseous pathology. 2. Mild shoulder osteoarthrosis. [facility], , 10/04/2024 10:54 AM
== END | disposition home or self-care (01) ==
LOC: RADXRMAIN 10:15
PROVIDERS: ATTEND Family Medicine
DX: M19.012 Primary osteoarthritis, left shoulder (principal); M19.011 Primary osteoarthritis, right shoulder